=== PATIENT | female | born 1990 | race Caucasian/White ===

== ENCOUNTER 2018-12-31 21:04 | Emergency (ER) | payer OTHER ==
[~2018-12-31] VITALS: Ht 175.2 cm; Wt 88.5 kg
[~2018-12-31 21:04] MED LIST: AMOXICILLIN,AM875 MG PO; AMOXIL250 MG/5 M PO; BACTRIM DS 8001 TA1 PO; BACTROBAN21 NS; CIPROFLOXACIN500 MG PO; DOXYCYCLINE100 M3 PO; IBU800 M1 PO; NKHM; PRENATAL1 TA7 PO; TYLENOL W/CODEI1 TA2 PO; VICODIN 5/500 505 MG PO
[2018-12-31 21:05] VITALS: BP 133/100
[2018-12-31] MEDS ORDERED: AMOXICILLIN500 M2 PO (21:37)
== END 2018-12-31 21:39 | disposition home or self-care (01) ==
LOC: ED 21:04
DX: R59.0 Localized enlarged lymph nodes (principal); M54.2 Cervicalgia; F17.200 Nicotine dependence, unspecified, uncomplicated; Z79.899 Other long term (current) drug therapy

== ENCOUNTER → 2020-04-22 | Outpatient (CLI) | payer OTHER ==
[~2020-04-22] MED LIST changes: +AMOXICILLIN500 M2 PO
== END | disposition home or self-care (01) ==
LOC: CT 04-16 15:00
PROVIDERS: ATTEND Nurse Practitioner Family
DX: G44.52 New daily persistent headache (NDPH) (principal)

== ENCOUNTER 2023-06-22 17:13 | Emergency (ER) | payer BC, OTHER ==
[~2023-06-22] VITALS: Ht 175.2 cm; Wt 77.1 kg
[2023-06-22 17:23] VITALS: BP 140/82
[2023-06-22] MEDS ORDERED: ACETAMINOPHEN 325 MG TAB PO ONE (17:40)
[2023-06-22] MEDS ORDERED: IBUPROFEN 600 MG TAB PO ONE (17:40)
[2023-06-22 17:49] LABS: BASO # 0.1 10*3/uL (0.0-0.1); BASO % 0.5 % (0.0-1.0); EOS % 0.2 % (1.0-4.0); HEMATOCRIT 40.2 % (37.0-47.0); LYMPH # 0.7 10*3/uL (1.3-4.4); LYMPH % 5.3 % (27.0-41.0); MEAN CELL VOLUME 95.5 fl (81.0-99.0); MEAN CORPUSCULAR HGB 30.6 pg (27.0-31.0); MEAN CORPUSCULAR HGB CONC 32.1 g/dl (33.0-37.0); MEAN PLATELET VOLUME 9.7 fl (9.6-12.3); MONO # 0.8 10*3/uL (0.1-1.0); MONO % 6.3 % (3.0-9.0); NEUT # 11.1 10*3/uL (2.3-7.9); NEUT % 87.4 % (47.0-73.0); PLATELET COUNT AUTOMATED 251 10*3/uL (130-400); RED BLOOD COUNT 4.21 10*6/uL (4.10-5.10); RED CELL DISTRI WIDTH 12.7 % (0-14.5); WHITE BLOOD COUNT 12.7 10*3/uL (4.8-10.8)
[2023-06-22 18:10] LABS: BUN 8 mg/dl (9-23); CHLORIDE 102 mmol/L (98-107); POTASSIUM 4.2 mmol/L (3.4-5.1)
[2023-06-22] MEDS ORDERED: AMOX-CLAV 875-1 EACH PO (19:30)
[2023-06-22] MEDS ORDERED: Amoxicillin/Clavulanate Pota 875 MG TAB PO ONE (19:35)
[2023-06-23] MEDS ORDERED: AMOX-CLAV600 MG/5 M PO (10:25)
== END 2023-06-22 19:48 | disposition home or self-care (01) ==
LOC: ED 17:13
PROVIDERS: Nurse Practitioner Family
DX: J02.9 Acute pharyngitis, unspecified (principal); Z20.822 Contact with and (suspected) exposure to COVID-19; Z98.890 Other specified postprocedural states

== ENCOUNTER 2023-06-23 09:51 | Emergency (ER) | payer BC, OTHER ==
[~2023-06-23] VITALS: Ht 175.2 cm; Wt 77.1 kg
[~2023-06-23 09:51] MED LIST changes: +AMOX-CLAV 875-1 EACH PO
[2023-06-23 10:13] VITALS: BP 126/81
[2023-06-23] MEDS ORDERED: AMOX-CLAV600 MG/5 M PO (10:25)
== END 2023-06-23 10:37 | disposition home or self-care (01) ==
LOC: ED 09:51
DX: J02.0 Streptococcal pharyngitis (principal); F17.200 Nicotine dependence, unspecified, uncomplicated; Z98.890 Other specified postprocedural states